=== PATIENT | female | born 1985 | race Caucasian/White ===

== ENCOUNTER 2022-07-04 08:39 | Outpatient (CLI) | payer BC, SELFPAY ==
[2022-07-04 09:19] LABS: Basophils Percent Auto 0.6 % (0.2-1.2); Eosinophils Absolute Auto 0.1 K/mm3 (0-0.3); Eosinophils Percent Auto 1.2 % (0-4.4); Hematocrit 37.8 % (37.0-47.0); Hemoglobin 12.4 g/dL (12.0-15.0); Immature Granulocyte Absolute 0.02 K/mm3 (0.00-0.031); Immature Granulocyte Percent A 0.3 % (0-0.5); Lymphocytes Absolute Auto 1.61 K/mm3 (0.9-3.2); Lymphocytes Percent Auto 24.6 % (18.3-44.2); Mean Corpuscular HGB Conc 32.8 g/dl (32-36); Mean Corpuscular Hemoglobin 27.3 pg (26-34); Mean Corpuscular Volume 83.3 fl (80-100); Mean Platelet Volume 9.3 fl (7.4-10.4); Monocytes Absolute Auto 0.4 K/mm3 (0.1-0.6); Monocytes Percent Auto 6.7 % (2.6-8.5); Neutrophils Absolute Auto 4.4 K/mm3 (1.3-6.7); Neutrophils Percent Auto 66.6 % (45.5-73.1); Platelet Count Result 292 k/mm3 (150-375); Red Blood Count 4.54 M/mm3 (4.2-5.4); Red Cell Distribution Width 16.4 % (11.5-14.5); White Blood Count 6.5 K/mm3 (4.5-10.0)
== END 2022-07-04 08:40 | disposition home or self-care (01) ==
LOC: ANHLAB 08:44
PROVIDERS: PCP Internal Medicine; Visit Provider Obstetrics & Gynecology
DX: N85.2 Hypertrophy of uterus (principal); Z01.818 Encounter for other preprocedural examination
CPT/HCPCS: 36415; 85025; 86850; 86900; 86901

== ENCOUNTER 2022-07-10 01:05 | Day surgery (SDC) | payer BC, SELFPAY ==
[2022-07-01 13:56] VITALS: BMI 21.9
--- NOTE | 2022-07-01 14:02 | PC.NURSE ---
Report to the Outpatient Waiting Room, entrance under the green pavilion located off [facility], at time 7:30 on date 07/10/22. Planned Procedure Time: 9:30. Time changes happen often and if your time is changed the preop area will call you the afternoon before. - You and your visitor will be asked to self-screen and do not enter if you have any COVID symptoms. - Only one visitor is requested with a max of two and NO children visitors are allowed at this time. - The patient visitor may be requested to leave or wait in car when not with patient due to distancing restrictions. - A mask is optional within the hospital at this time. Patients may have clear liquids (water, carbonated beverages, clear teas, apple juice) until 3 hours prior to surgery with a maximum of 20 ounces. - No food from midnight until time of surgery Take the following medications with a SIP of water the morning of surgery: NONE DO NOT STOP ANY OF YOUR OTHER PRESCRIPTION MEDICATIONS PRIOR TO SURGERY EXCEPT THE FOLLOWING Medications to discontinue per physician: VITAMINS Date to take last dose: 07/06/22 Please no make-up, nail swedish, hairspray, perfume, deodorant, or body powder the day of surgery. No jewelry (including any body piercings) or valuables the day of surgery, leave them at home. Please take a shower or bath the night before, or the morning of, surgery with an antibacterial soap. Wear comfortable, loose fitting clothing. - Jewelry must be removed prior to entering the operating room. Rings and piercings that are not removed may be cut off. - The hospital will not accept responsibility for valuables. - Please leave all valuables, including medications, at home the day of surgery. If you are going home after surgery, a licensed reach lift truck driver must drive you home. - NO public transportation without another adult if you receive anesthesia. - We recommend that an adult stay with you for 24 hours following discharge. - We also recommend that you do not drive, make important decision, drink alcoholic beverages, or take any drugs that were not prescribed by your health care provider for at least 24 hours after your discharge time. Follow any additional instructions given to you from your surgeon. If you or anyone in your household have experienced Covid symptoms in the past week, please notify your surgeon or the nurse liaison at the phone number below for possible testing. Telephone instructions given to PT - KRISTAL HOLCOMB and asked if any additional questions and then verbalized understanding. Patient advised to call surgeon office or pre surgery nurse liaison [phone] if any additional questions.
--- NOTE | 2022-07-08 07:41 | PM.IMHP ---
H&P: HPI History of Present Illness Date/Time: 07/08/22 07:41 Chief Complaint: Pelvic pain and enlarged uterus secondary to fibroids Narrative: 37 year female in for bilateral salpingectomy secondary to uterine fibroids. 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 At this point she has decided for definitive therapy via hysterectomy and bilateral salpingectomy. Risks and benefits were reviewed including not exclusive of , aspiration pneumonia, bleeding, transfusion, perforation injury to bowel, bladder, ureters, or other internal organs with need for laparotomy. She received the [employer] handout entitled hysterectomy as well as the de [place]aya handout. She had all questions answered and asked to proceed [facility] Social History Social History Smoking packs per day: 0.5 Smoking cigarettes per day: 10.0 Years smoked: 16 Smoking pack-years: 8.00 Smoking status: Current every day smoker Tobacco type: cigarettes Alcohol intake: current Alcohol use details: 2/MONTH Substance use: never Substance use type: does not use Living arrangements: alone Spiritual care concerns: No Meds Home Medications and Allergies Home Medications Medication Instructions Recorded Confirmed Type multivitamin 1 tablet PO DAILY 07/01/22 07/01/22 History sertraline 50 mg tablet 50 mg PO HS 07/01/22 07/01/22 History Allergies Allergy/AdvReac Type Severity Reaction Status Date / Time No Known Allergies Allergy Verified 07/01/22 13:55 Exam Const: General: cooperative, healthy appearing, comfortable and well groomed Orientation/consciousness: oriented to person, oriented to place and oriented to time HENMT: Head: normal to inspection Neck: Neck: normal visual inspection Chest: Chest palpation & inspection: normal inspection of the chest Resp: Effort & Inspection: normal respiratory effort Cardio: Rate: regular rate Rhythm: regular rhythm Heart sounds: S1 normal heart sound present and S2 normal heart sound present GI: Inspection: normal to inspection : External Female Exam: normal external appearance Speculum Exam - Vagina: normal appearance of the vagina Speculum Exam - Cervix: Cervical os closed Bimanual exam- vagina & uterus: enlarged and Uterine tenderness Bimanual Exam- Adnexa, other: normal adnexae Assessment and Plan Assessment and plan (1) Uterine fibroid: Code(s): D25.9 - Leiomyoma of uterus, unspecified Status: Acute (2) Pelvic pain: Code(s): R10.2 - Pelvic and perineal pain Status: Acute Plan Robotic total vaginal hysterectomy and bilateral salpingectomy
[2022-07-10] VITALS (9 sets, daily range): BP systolic 102–123; BP diastolic 49–78; PULSE 69–95; RESP 12–18; TEMP 36.5–36.9; O2SAT 99–100
--- NOTE | 2022-07-10 07:04 | WPDHPUPDATE1 ---
History and Physical Update Update Date/Time: 07/10/22 07:04 History and Physical has been reviewed, including an updated exam of the patient. There are NO changes in the patient's condition. Risks, benefits, and alternatives have been discussed and questions answered. Patient agrees to proceed with procedure.
[2022-07-10] MEDS: ACETAMINOPHEN 500 MG TABLET 1000 MG PO (08:10)
[2022-07-10] MEDS: LACTATED RINGERS 1,000 ML 30 ML IV CONT ×2 (08:20→12:01)
[2022-07-10] MEDS: KETOROLAC 15 MG/ML VIAL (*BKC) IV PUSH (08:24)
--- NOTE | 2022-07-10 08:56 | WPDANESEPPF ---
Anes - Initial Pre Proc Eval Procedure: Operation Date: 07/10/22 09:30 Proposed Procedures p Robotic Assisted Total Vaginal Hysterectomy with Bilateral Salpingectomy - Yovanny Fregoso MD Date/Time: 07/10/22 08:56 Surgeon: Yovanny Fregoso MD Pre Op Diagnosis: Enlarged Uterus,Pelvic Pain,Irg bleed,Fibroids Patient Data Age: 37 Gender: F Height: 1.7 m Weight: 65.9 kg Last Vital Signs Temp 97.7 F 07/10/22 07:48 Pulse 83 07/10/22 07:48 Resp 16 07/10/22 07:48 BP 102/49 L 07/10/22 07:48 Pulse Ox 100 07/10/22 07:48 O2 Del Method Room Air 07/10/22 07:48 Allergies Allergy/AdvReac Type Severity Reaction Status Date / Time No Known Allergies Allergy Verified 07/10/22 08:07 Home Medications Medication Instructions Recorded Confirmed Type multivitamin 1 tablet PO DAILY 07/01/22 07/10/22 History sertraline 50 mg tablet 50 mg PO HS 07/01/22 07/10/22 History hydrocodone 5 mg-acetaminophen 325 1 tablet PO Q4H PRN pain #20 tabs 07/10/22 Rx mg tablet Patient hx anesthesia problems: none Family hx anesthesia problems: none Results Review: All pre-operative results and documents have been reviewed as part of the pre-operative evaluation. [facility] Social History Social History Smoking packs per day: 0.5 Smoking cigarettes per day: 10.0 Years smoked: 16 Smoking pack-years: 8.00 Smoking status: Current every day smoker Tobacco type: cigarettes Alcohol intake: current Alcohol use details: 2/MONTH Substance use: never Substance use type: does not use Living arrangements: alone Spiritual care concerns: No Anes - Eval Final PreProcedure Day of Procedure 07/10/22 08:56 Patient weight: normal Heart: regular rate and rhythm Lungs: clear to auscultation Airway: Mallampati scale class II Neurological: alert and oriented Last oral intake: >/= 8 hours ASA classification: II Emergent: no Anesthetic plan: proceed Anesthesia type and monitoring: general ETT and standard monitoring Results Review: All pre-operative results and documents have been reviewed as part of the pre-operative evaluation. Informed Consent: The patient's anesthetic plan and its attendant risks and benefits were discussed with the patient/family/POA. Questions were solicited and answers provided to the satisfaction of the patient/family/POA.
--- NOTE | 2022-07-10 08:59 | P.PNAN_ITS ---
Anes - Initial Pre Proc Eval Procedure: Operation Date: 07/10/22 09:30 Proposed Procedures p Robotic Assisted Total Vaginal Hysterectomy with Bilateral Salpingectomy - Yovanny Fregoso MD Date/Time: 07/10/22 08:59 Surgeon: Yovanny Fregoso MD Pre Op Diagnosis: Enlarged Uterus,Pelvic Pain,Irg bleed,Fibroids Patient Data Age: 37 Gender: F Height: 1.7 m Weight: 65.9 kg Last Vital Signs Temp 97.7 F 07/10/22 07:48 Pulse 83 07/10/22 07:48 Resp 16 07/10/22 07:48 BP 102/49 L 07/10/22 07:48 Pulse Ox 100 07/10/22 07:48 O2 Del Method Room Air 07/10/22 07:48 Allergies Allergy/AdvReac Type Severity Reaction Status Date / Time No Known Allergies Allergy Verified 07/10/22 08:07 Home Medications Medication Instructions Recorded Confirmed Type multivitamin 1 tablet PO DAILY 07/01/22 07/10/22 History sertraline 50 mg tablet 50 mg PO HS 07/01/22 07/10/22 History hydrocodone 5 mg-acetaminophen 325 1 tablet PO Q4H PRN pain #20 tabs 07/10/22 Rx mg tablet Patient hx anesthesia problems: none Family hx anesthesia problems: none Results Review: All pre-operative results and documents have been reviewed as part of the pre- operative evaluation. [facility] Social History Social History Smoking packs per day: 0.5 Smoking cigarettes per day: 10.0 Years smoked: 16 Smoking pack-years: 8.00 Smoking status: Current every day smoker Tobacco type: cigarettes Alcohol intake: current Alcohol use details: 2/MONTH Substance use: never Substance use type: does not use Living arrangements: alone Spiritual care concerns: No Anes - Eval Final PreProcedure Day of Procedure 07/10/22 08:59 Patient weight: normal Heart: regular rate and rhythm Lungs: clear to auscultation Neurological: alert and oriented Last oral intake: >/= 8 hours Emergent: no Anesthetic plan: proceed Anesthesia type and monitoring: general ETT and standard monitoring Results Review: All pre-operative results and documents have been reviewed as part of the pre- operative evaluation. Informed Consent: The patient's anesthetic plan and its attendant risks and benefits were discussed with the patient/family/POA. Questions were solicited and answers provided to the satisfaction of the patient/family/POA.
[2022-07-10] MEDS: ceFAZolin 2 GM/D5W 50 ML 2 GM/50 ML BAG IVPB (09:19)
--- NOTE | 2022-07-10 11:43 | W.PM.PROC2 ---
Procedure Note - Detailed Date of Procedure 07/10/22 Pre-op Diagnosis Enlarged Uterus,Pelvic Pain,Irg bleed,Fibroids Post-op Diagnosis Same Procedure Performed Robotic total vaginal hysterectomy and bilateral salpingectomy Surgeon Yovanny Fregoso MD Anesthesia General Indications this is a 37-year-old female with a tremendously large fibroid uterus is symptomatic Findings uterus that [id number]. Normal-appearing ovaries and tubes. Description of Procedure Patient was prepped draped in the normal sterile fashion placed in dorsal lithotomy position. Under excellent general trach anesthesia weighted speculum placed posterior fornix vagina. Anterior lip of the cervix grasped with single-tooth tenaculum. Uterus sounded to 14cm. Serial dilatation with fragmented dilators performed followed by passage of the 10. MAXIMILIAN and the 3. Cold cup. Next 16 Slovak catheter placed in bladder and bladder drained clear urine. Weighted speculum was removed it was with single-tooth in the gloves were changed. A supraumbilical incision made the Veress needle passed in the abdomen. Abdomen filled with CO2 gas [id number]. The 8mm trocar advanced in the abdomen. Downside visualized no injury seen. Patient placed in Trendelenburg to20? and the gas reattached. Right and left lateral quadrant incisions made and the 8mm trocars advanced under direct visualization. Right upper quadrant incision made in the 8mm trocar advanced under direct visualization assuring no injury. The robot was docked. Attention was turned to the senior counsel commercial. The uterus was large irregular and encompass the entire pelvis. The left round ligament was grasped, burned, cut. Anterior bladder flap was formed by sharply dissecting the peritoneum and reflecting the bladder caudally away from the cervix uterus the opposite round ligament. The left fallopian tube was twisted as was the entire uterus secondary to the large size of the uterus. This was dissected away from the ovarian complex. And remained attached to the uterine origin. This was repeated on the contralateral side to remove the right tube. The left utero-ovarian ligament was skeletonized clamping burning cutting and bringing this to the previously cut round ligament. Conserving the right ovary the utero-ovarian ligament was clamped, burned, cut. This conserve the right ovary next the left cardinal broad ligaments were serially skeletonized clamping burning cutting and riding the cervix and uterus until the large tortuous uterine vessels could be seen. These were individually clamped, burned, cut. In like fashion the cardinal broad ligaments on the right were serially skeletonized clamping burning cutting until the uterine vessels could be seen on the right these again were large and tortuous as well. These were clamped, burned, cut. Blanching the uterus was seen. Due to the excessively large size of the uterus it was left attached to the cervix and attached to the vaginal cuff. This was cut into several pieces. And then a colpotomy incision was made. The pieces were serially fed through the vagina and the until all pieces were removed. The vaginal cuff was then closed with continuous running 0V lock from lateral edge to lateral edge back to the midline. Irrigation undertaken to clear blood loss estimated 25cc. The robot was undocked and the gas removed from the abdomen. The pedicles were all dry. The incisions were closed with 4 Monocryl and glue after undocking the robot the patient went to recovery in satisfactory condition. All sponge, needle, instrument counts were correct. There were no immediate complications Estimated Blood Loss 25 Drains No Packing No Pathology Yes Complications No immediate complications Condition Stable Disposition PACU
--- NOTE | 2022-07-10 11:48 | PM.DS ---
DS: Admitting Diagnosis Discharge Date 07/11/22 Admitting Diagnosis symptomatic uterine fibroids DS: Discharge Diagnosis Discharge Diagnosis (1) Pelvic pain: Code(s): R10.2 - Pelvic and perineal pain Status: Acute (2) Uterine fibroid: Code(s): D25.9 - Leiomyoma of uterus, unspecified Status: Acute DS: Summary Hospital Course Reason for hospitalization: patient was admitted for robotic total vaginal hysterectomy and bilateral salpingectomy Hospital Course: patient underwent robotic total vaginal hysterectomy and bilateral salpingectomy successfully. Blood loss was minimal. Please see the operative for full details. Her hospital course was unremarkable. She remained afebrile. She was up, voiding without difficulty, ambulating, eating regular diet, general without complaints. Time Spent with Patient Time attestation: Total time spent providing and/or coordinating discharge services: Exam Const: General: cooperative, healthy appearing and comfortable Nutritional Appearance: average body habitus Orientation/consciousness: oriented to person, oriented to place and oriented to time HENMT: Head: normal to inspection Resp: Effort & Inspection: normal respiratory effort Cardio: Rate: regular rate Rhythm: regular rhythm Heart sounds: S1 normal heart sound present and S2 normal heart sound present GI: Inspection: normal to inspection and incision ( Wounds are clean dry and intact) DS: Data Data Completed and Pending Pending studies at discharge: Pending at discharge 07/10/22 10:42 Surgical [PTH] Routine Discharge Plan Discharge Patient Disposition: Home, Self-Care Patient Instructions: Laparoscopic Hysterectomy (DC) Stand Alone Forms: General Discharge Instructions Follow-up/Referrals: Yovanny Paris MD [Physician] - 2 Weeks Discharge Orders: Discharge Order (Routine); Ordered 07/11/22 Ordered By: Yovanny Fregoso Discharge Medications: New hydrocodone-acetaminophen 5-325 mg tablet 1 tablet PO Q4H PRN (Reason: pain) Qty: 20 0RF Continued multivitamin Tablet 1 tablet PO DAILY sertraline 50 mg tablet 50 mg PO HS
[2022-07-10] MEDS: fentaNYL CITRATE INJ (*CRX) 100 MCG/2 ML VIAL 25 MCG IV PUSH ×2 (12:22→13:06)
[2022-07-10] MEDS: ONDANSETRON INJ 4 MG/2 ML VIAL IV PUSH (12:46)
--- NOTE | 2022-07-10 13:25 | PC.NURSE ---
This patient, Mandy Colon, was received from PACU on 07/10/22 at 1325. Patient/family oriented to unit policies and routines
[2022-07-10] MEDS: DEXTROSE 5%/LACTATED RINGERS 1,000 ML 125 ML IV CONT (13:44)
[2022-07-10] MEDS: KETOROLAC 30 MG/ML VIAL (*BKC) IV PUSH (13:45)
[2022-07-10] MEDS: DOCUSATE SODIUM 100 MG CAPSULE PO (16:21)
[2022-07-10] MEDS: HYDROcodone/acetaminophen (*CRX) 5-325 MG TABLET 1 TAB PO ×2 (16:22→20:37)
[2022-07-10] MEDS: SIMETHICONE 80 MG TAB.CHEW PO (20:37)
[2022-07-10] MEDS: IBUPROFEN 600 MG TABLET PO (20:37)
[2022-07-11 04:40] VITALS: BP 112/68; PULSE 77; RESP 16; TEMP 36.8
[2022-07-11] MEDS: IBUPROFEN 600 MG TABLET PO (04:51)
[2022-07-11] MEDS: HYDROcodone/acetaminophen (*CRX) 5-325 MG TABLET 1 TAB PO (04:51)
[2022-07-11] MEDS: SIMETHICONE 80 MG TAB.CHEW PO ×2 (04:51→08:27)
[2022-07-11 05:21] LABS: Basophils Absolute Auto 0.1 K/mm3 (0.0-0.1); Basophils Percent Auto 0.7 % (0.2-1.2); Eosinophils Absolute Auto 0.1 K/mm3 (0-0.3); Hemoglobin 10.8 g/dL (12.0-15.0); Immature Granulocyte Absolute 0.07 K/mm3 (0.00-0.031); Immature Granulocyte Percent A 0.5 % (0-0.5); Lymphocytes Absolute Auto 2.28 K/mm3 (0.9-3.2); Lymphocytes Percent Auto 16.7 % (18.3-44.2); Mean Corpuscular HGB Conc 31.8 g/dl (32-36); Mean Corpuscular Hemoglobin 26.7 pg (26-34); Mean Platelet Volume 9.5 fl (7.4-10.4); Monocytes Absolute Auto 0.9 K/mm3 (0.1-0.6); Monocytes Percent Auto 6.4 % (2.6-8.5); Neutrophils Absolute Auto 10.2 K/mm3 (1.3-6.7); Neutrophils Percent Auto 74.7 % (45.5-73.1); Platelet Count Result 279 k/mm3 (150-375); Red Blood Count 4.05 M/mm3 (4.2-5.4); Red Cell Distribution Width 16.6 % (11.5-14.5); White Blood Count 13.7 K/mm3 (4.5-10.0)
[2022-07-11 08:00] VITALS: BP 105/62; PULSE 64; RESP 16; TEMP 36.8; O2SAT 100
--- NOTE | 2022-07-11 08:00 | WPDANESPN ---
Anes - Prog Note Post-Op Date/Time: 07/11/22 08:00 Cardiovascular status: normal Respiratory status: normal Airway patency: baseline Mental status: baseline Post-Op hydration status: normal Vital Signs: Last Vital Signs Temp 36.8 C 07/11/22 04:40 Pulse 77 07/11/22 04:40 Resp 16 07/11/22 04:40 BP 112/68 07/11/22 04:40 Pulse Ox 99 07/10/22 16:15 O2 Del Method Room Air 07/10/22 13:00 O2 Flow Rate 10 07/10/22 12:01 Pain Score (VAS): 2 I/O: Intake & Output 07/10/22 07/11/22 07/11/22 23:59 07:59 15:59 Intake Total 1340 Output Total 1075 Balance 265 Laboratory Tests 07/11/22 04:48 07/11/22 04:48 WBC 13.7 H RBC 4.05 L Hgb 10.8 L Hct 34.0 L MCV 84.0 MCH 26.7 MCHC 31.8 L RDW 16.6 H Plt Count 279 MPV 9.5 Immature Gran % (Auto) 0.5 Neut % (Auto) 74.7 H Lymph % (Auto) 16.7 L [place] % (Auto) 6.4 Eos % (Auto) 1.0 Baso % (Auto) 0.7 Lymph # (Auto) 2.28 [place] # (Auto) 0.9 H Eos # (Auto) 0.1 Baso # (Auto) 0.1 Abs Immat Gran (auto) 0.07 H Absolute Neuts (auto) 10.2 H Absolute Nucleated RBC 0.0 Nucleated RBC % 0.0 Post-procedural complaints: none Patient Feedback: Patient satisfied with anesthetic care.
[2022-07-11] MEDS: DOCUSATE SODIUM 100 MG CAPSULE PO (08:27)
[2022-07-11] MEDS: ENOXAPARIN 40 MG/0.4 ML SYRINGE SUB-Q (08:28)
--- NOTE | 2022-07-11 10:18 | PM.GYNPNOP ---
BUSINESS TECHNOLOGY ANALYST - A/P Assessment and plan (1) Pelvic pain: Code(s): R10.2 - Pelvic and perineal pain Status: Acute Assessment and Plan: A: POD#1, s/p robotic assited TVHBS, doing well. P: Home to f/u 2 weeks in the office. (2) Uterine fibroid: Code(s): D25.9 - Leiomyoma of uterus, unspecified Status: Acute Postoperative Procedures: Procedures Operation Date: 07/10/22 09:30 Actual Procedure Side Surgeon p Robotic Assisted Total Vaginal Hysterectomy with Bilateral Salpingectomy Bilateral Yovanny Fregoso MD Postoperative day: 1 Time Spent With Patient Time with patient: less than 15 minutes BUSINESS TECHNOLOGY ANALYST- PN:Subj Post-Op Subjective Date/time seen: 07/11/22 10:18 Interval history: Pain OK. Tolerating diet. Voiding. Would like to go home. Exam Narrative: AVSS I/O OK ABD soft, nontender. Incisions c/d/i. EXT nontender BUSINESS TECHNOLOGY ANALYST - PN: Obj Data Vital Signs Vital Signs: Vital Signs - 24 hr 07/10/22 12:01 07/10/22 12:15 07/10/22 12:30 Temperature 36.6 C Pulse Rate 95 84 80 Respiratory Rate 16 12 14 Blood Pressure 119/50 L 120/70 115/75 Pulse Oximetry 99 100 100 Oxygen Delivery Simple Face Mask Room Air Room Air Oxygen Flow Rate 10 07/10/22 12:45 07/10/22 13:00 07/10/22 13:30 Temperature 36.9 C Pulse Rate 69 70 70 Respiratory Rate 18 12 18 Blood Pressure 116/66 121/78 115/69 Pulse Oximetry 99 99 Oxygen Delivery Room Air Room Air Oxygen Flow Rate 07/10/22 16:15 07/10/22 18:40 07/11/22 04:40 Temperature 36.8 C 36.7 C 36.8 C Pulse Rate 76 83 77 Respiratory Rate 16 16 16 Blood Pressure 123/65 116/62 112/68 Pulse Oximetry 99 Oxygen Delivery Oxygen Flow Rate 07/11/22 08:00 07/11/22 08:00 Temperature 36.8 C Pulse Rate 64 64 Respiratory Rate 16 16 Blood Pressure 105/62 Pulse Oximetry 100 100 Oxygen Delivery Room Air Oxygen Flow Rate Intake/Output Intake/Output: Intake & Output 07/08/22 07/09/22 07/10/22 07/11/22 23:59 23:59 23:59 23:59 Intake Total 2220 Output Total 1215 Balance 1005 Meds/Results Medications: Active Medications Generic Name Dose Route Start Last Admin Trade Name Freq PRN Reason Stop Dose Admin Hydrocodone Bitart/Acetaminophen 1 tab 07/10/22 13:18 Hydrocodone/Acetaminophen (*Crx) 10-325 Mg Tablet PO Q3H PRN Pain Rated 6 or Greater Hydrocodone Bitart/Acetaminophen 1 tab 07/10/22 13:18 07/11/22 04:51 Hydrocodone/Acetaminophen (*Crx) 5-325 Mg Tablet PO 1 tab Q3H PRN Administration Pain Rated 5 or Less Docusate Sodium 100 mg 07/10/22 17:00 07/11/22 08:27 Docusate Sodium 100 Mg Capsule PO 100 mg BID BYRON Administration Enoxaparin Sodium 40 mg 07/11/22 09:00 07/11/22 08:28 Enoxaparin 40 Mg/0.4 Ml Syringe SUB-Q 40 mg DAILY BYRON Administration Ibuprofen 600 mg 07/10/22 13:18 07/11/22 04:51 Ibuprofen 600 Mg Tablet PO 600 mg Q6H PRN Administration Cramping Ketorolac Tromethamine 30 mg 07/10/22 13:18 07/10/22 13:45 Ketorolac 30 Mg/Ml Vial (*Bkc) IV PUSH 07/15/22 13:17 30 mg Q6H PRN Administration Pain Rated 4-6 Naloxone HCl 0.1 mg 07/10/22 13:18 Naloxone Hcl 0.4 Mg/Ml Vial IV PUSH Q2M PRN Respiratory rate less than 10 Ondansetron HCl 4 mg 07/10/22 13:18 Ondansetron Inj 4 Mg/2 Ml Vial IV PUSH Q6H PRN Nausea And Vomiting Simethicone 80 mg 07/10/22 13:18 07/11/22 08:27 Simethicone 80 Mg Tab.Chew PO 80 mg Q2H PRN Administration Gas Labs 07/11/22 04:48 Labs: Laboratory Results - last 24 hr 07/11/22 04:48 WBC 13.7 H RBC 4.05 L Hgb 10.8 L Hct 34.0 L MCV 84.0 MCH 26.7 MCHC 31.8 L RDW 16.6 H Plt Count 279 MPV 9.5 Immature Gran % (Auto) 0.5 Neut % (Auto) 74.7 H Lymph % (Auto) 16.7 L [place] % (Auto) 6.4 Eos % (Auto) 1.0 Baso % (Auto) 0.7 Lymph # (Auto) 2.28 [place] # (Auto) 0.9 H Eos # (Auto) 0.1 Baso # (Auto) 0.1 Abs Na
--- NOTE | 2022-07-11 12:10 | PC.NURSE ---
1205-RN Hand-delivered Elsa 5 mg to pharmacistCathie. Pt [facility] at 1022 today.
== END 2022-07-11 10:22 | disposition home or self-care (01) ==
LOC: ANHSURGERY 07:38 → ANHOB2 13:20
PROVIDERS: PCP Internal Medicine; Visit Provider Obstetrics & Gynecology
PROC: (CPT 58573; principal; 2022-07-10 09:30)
DX: D25.9 Leiomyoma of uterus, unspecified (principal); N83.8 Other noninflammatory disorders of ovary, fallopian tube and broad ligament; R10.2 Pelvic and perineal pain; N93.9 Abnormal uterine and vaginal bleeding, unspecified; F17.210 Nicotine dependence, cigarettes, uncomplicated
CPT/HCPCS: 58573; S2900; 36415; 85025; 88307; 88342; 99199; A9270; J0690; J1100; J1650; J1885; J2250; J2405; J2704; J3010; J7030; J7120; J7121